=== PATIENT | female | born 1995 | race Caucasian/White ===

== ENCOUNTER 2016-10-11 08:28 | Emergency (ER) | payer MEDICAID ==
--- NOTE | 2016-10-11 08:37 | EDM.PDOC ---
ED HPI GENERAL MEDICAL PROBLEM - General Chief Complaint: Skin Complaint Stated Complaint: BEE STING/RT ARM Time Seen by Provider: 10/11/16 08:45 Source of Information: Reports: Patient History Limitations: Reports: No Limitations - History of Present Illness INITIAL COMMENTS - FREE TEXT/NARRATIVE: 21-year-old female was stung by bee or a wasp yesterday on the right forearm continues very red, swollen, and painful and she is concerned she may be allergic. No other symptoms. Location: Reports: Upper Extremity, Right Quality: Reports: Throbbing Severity: Moderate Associated Symptoms: Reports: No Other Symptoms Right Arm Pain Score (Numeric/FACES): 8 - Related Data Allergies Allergy/AdvReac Type Severity Reaction Status Date / Time No Known Allergies Allergy Verified 10/11/16 08:48 Past Medical History - Past Health History Medical/Surgical History: Denies Medical/Surgical History Neurological History: Reports: Migraines Social & Family History - Tobacco Use Smoking Status *Q: Current Every Day Smoker Years of Tobacco use: 5 Packs/Tins Daily: 0.5 ED ROS GENERAL - Review of Systems Review Of Systems: See Below Constitutional: Denies: Fever Respiratory: Denies: Shortness of Breath, Cough Cardiovascular: Denies: Chest Pain GI/Abdominal: Denies: Nausea, Vomiting Neurological: Reports: No Symptoms ED EXAM, SKIN/RASH Exam: See Below Exam Limited By: No Limitations General Appearance: Alert, No Apparent Distress Respiratory/Chest: No Respiratory Distress Extremities: Other (Exam is otherwise limited to the right arm. The patient has blanching erythema on the flexor surface of the right forearm which is tender to palpation.) Course - Vital Signs Last Recorded V/S: Last Vital Signs Temp 97.2 F 10/11/16 08:46 Pulse 83 10/11/16 08:40 Resp 16 10/11/16 08:46 BP 116/68 10/11/16 08:46 Pulse Ox 95 10/11/16 08:46 - Re-Assessments/Exams Free Text/Narrative Re-Assessment/Exam: 10/11/16 09:01 Explained to the patient this is not an allergic reaction and not an infection. It's an inflammatory response to the sting, we'll give her 50 mg of prednisone today and tomorrow with food, she can continue with cool compresses and add Benadryl and anti-inflammatories. Departure - Departure Time of Disposition: 09:18 Disposition: Home, Self-Care 01 Condition: Good Clinical Impression: Bee sting Sting, bee Qualifiers: Encounter type: initial encounter Injury intent: accidental or unintentional Qualified Code(s): T63.441A - Toxic effect of venom of bees, accidental ( unintentional), initial encounter - Discharge Information Instructions: Bee, Wasp, or Hornet Sting Referrals: Priyanka De La Rosa CNM [Primary Care Provider] - Forms: ED Department Discharge Care Plan Goals: Cool compresses to the reddened area may help. Take 5 pills of prednisone with food with your first meal for the next 2 days. Adding Benadryl may help. Also ibuprofen or naproxen may help. Return if worsening or concerns.
[2016-10-11 08:41] VITALS: BP 116/68
== END 2016-10-11 09:18 | disposition home or self-care (01) ==
LOC: JP.ED 08:28
DX: T63.441A Toxic effect of venom of bees, accidental (unintentional), initial encounter (principal); F17.210 Nicotine dependence, cigarettes, uncomplicated
CPT/HCPCS: 99283